=== PATIENT | male | born 1955 | race African-American/Black ===

== ENCOUNTER 2021-08-11 10:39 | Emergency (ER) | payer OTHER ==
[~2021-08-11] VITALS: Ht 177.8 cm; Wt 77.1 kg
[~2021-08-11 10:39] MED LIST: METOPROLOL TART25 M1 PO; ZPAK PO
[2021-08-11] MEDS ORDERED: VALIUM10 MG PO (13:11)
[2021-08-11 13:14] VITALS: BP 146/100
--- NOTE | 2021-08-12 07:28 | EKG ---
[place] [address] [facility] [address] [place] [address] ELECTROCARDIOGRAM REPORT Name: NANCY MICHAELMadison Vidales Room #: [facility] [id number] Admission: 08/11/21 Attend Phys: Discharge: 08/11/21 Date of : 53 Report #: [id number] [facility] ED Test Date: 2021-08-11 Test Time: 10:48:38 Pat Name: FERNANDA MICHAEL Department: Room: Gender: M Master Data Analyst: IG : 1955 Requested By: Ramesh Le Order Number: [id number] MD: Nixon Horvath Measurements Intervals [place] Rate: 82 P: 37 DE: 202 QRS: -32 QRSD: 89 T: 27 QT: 396 QTc: 463 Interpretive Statements Sinus rhythm Left anterior hemiblock No previous ECG available for comparison Electronically Signed On 08-12-2021 7:28:43 CDT by Nixon Horvath [email or web address] <ELECTRONICALLY SIGNED> By: Nixon Horvath MD, [facility] 08/12/21 0728 1048 1048 Nixon Horvath MD, FACC /EPI
== END 2021-08-11 13:24 | disposition home or self-care (01) ==
LOC: ER 10:39
DX: M54.2 Cervicalgia (principal); M43.6 Torticollis; F17.210 Nicotine dependence, cigarettes, uncomplicated; Z79.899 Other long term (current) drug therapy